=== PATIENT | female | born 1930 | race Caucasian/White ===

== ENCOUNTER 2017-04-04 07:01 | Day surgery (SDC) | payer MEDICARE, OTHER ==
[~2017-04-04] VITALS: Ht 157.5 cm; Wt 70.9 kg
--- NOTE | ~2017-04-04 | OR ---
ADMIT: 04/04/2017 RM/LOC: [facility] MR#: [id number] [address] [address] NIURKA RAMOS [address] [place] [address] Operative/Delivery Room Report SEX: F AGE: 86 : 1930 SURGERY DATE: 04/04/2017 SURGEON: Rell Porras MD PREPROCEDURE DIAGNOSIS: Acute appendicitis. POSTPROCEDURE DIAGNOSIS: Acute appendicitis. PROCEDURE: Laparoscopic appendectomy. INDICATIONS: The patient is an 86-year-old with signs, symptoms, and radiographic evidence consistent with appendicitis who presents for laparoscopic appendectomy. FINDINGS: The patient was taken to the operating room, general endotracheal anesthesia was induced. The patient's abdomen was prepped and draped in normal sterile fashion. The case was begun by making a transverse, supraumbilical 5 mm skin incision using #11 blade. A retractable 5 mm port was placed within the abdomen. The abdomen was insufflated with CO2 to an intra-abdominal pressure of 15 mmHg. A camera was placed showing no bowel or vascular injury. A suprapubic 5 mm port as well as a left lower quadrant 12 mm port was placed under direct vision. The case was begun by noting an inflamed, thickened appendix in the right lower quadrant, mobilized with Endo farnaz and atraumatic clamps. I made a window between the base of the appendix and mesoappendix using a [place] instrument. The appendix was divided, flushed with the cecum with an Endo MARTHA 45, 2.6 mm stapler. I divided the mesoappendix with 2 separate firings of an Endo-MARTHA 45, 2.6 mm stapler. The appendix was placed in an EndoCatch bag and brought out through the left lower quadrant port site. On reexamination of the operative site, there was a mild amount of bleeding from the mesenteric staple line that I controlled with electrocautery. I then irrigated the pelvis and right lower quadrant copiously until the irrigant was clear. There was no evidence of enteric leakage and/or staple line bleeding. 0.5% Marcaine was injected subdermally, subfascially for postoperative analgesia. The left lower quadrant fascial incision was closed with [id number] 0 Polysorb suture passer. The air was desufflated and the port sites removed. The skin sites closed with interrupted 4-0 Vicryl subcuticular skin stitches. Wounds were cleaned and dried. Steri-Strips and Tegaderms were applied over the top. Needle, sponge, and instrument counts were correct at the end of the case. The patient was extubated and wheeled to recovery room in good condition. Rell Porras MD/ arden JOB #: [id number] CC: Rell Porras, Attending Physician ADMIT: 04/04/2017 RM/LOC: [facility] MR#: [id number] [address] [place] [id number] NIURKA RAMOS [address] [place] [address] Operative/Delivery Room Report SEX: F AGE: 86 : 1930 Rell Porras, Family Physician
--- NOTE | ~2017-04-04 | HP ---
ADMIT: 04/04/2017 RM/LOC: [facility] MR#: [id number] [address] [address] NIURKA RAMOS [address] [place] [address] Pre-OP History and Physical SEX: F AGE: 86 : 1930 DATE OF SERVICE: 04/04/2017 HISTORY OF PRESENT ILLNESS: The patient is an 86-year-old female, who developed abdominal pain starting yesterday morning around 11:00 which is about 24 hours from now which is something she has not had prior in the past. She was not having any other associated symptoms. Has developed some nausea and anorexia. The pain persisted and became more severe in the right lower quadrant. She presented to the emergency room where she was worked up, found to have a mild leukocytosis and radiographic evidence consistent with appendicitis. PAST MEDICAL HISTORY: Includes fib-upkrncw-[id number] diabetes, hypertension, and arthritis. MEDICATIONS: Include: 1. Amlodipine. 2. Metformin. 3. Lisinopril. 4. Naprosyn. 5. Fenofibrate. 6. Tramadol. 7. Aspirin. PAST SURGICAL HISTORY: Includes bilateral total knee replacement. She has had carpal tunnel surgery in the past. She has had a laparoscopic cholecystectomy done. ALLERGIES: SHE HAS NO KNOWN DRUG ALLERGIES. FAMILY HISTORY: Otherwise unremarkable. SOCIAL HISTORY: She is a nondrinker, nonsmoker. REVIEW OF SYSTEMS: Her 11-point review of systems is negative other than the nausea and abdominal pain. PHYSICAL EXAMINATION: HEENT: Head is normocephalic and atraumatic. She had no scleral icterus. NECK: Supple. No carotid bruits. HEART: Regular. ADMIT: 04/04/2017 RM/LOC: [facility] MR#: [id number] [address] [place] [id number] NIURKA RAMOS [address] [place] [address] Pre-OP History and Physical SEX: F AGE: 86 : 1930 LUNGS: Clear. ABDOMEN: Soft, nondistended. Tender to palpation in right lower quadrant. EXTREMITIES: She had no peripheral edema. NEUROLOGICAL: No focal neurologic deficits. SKIN: No skin rash or hives. ASSESSMENT: The patient is an 86-year-old with signs, symptoms, and radiographic evidence consistent with acute appendicitis. PLAN: Plan is for laparoscopic versus open appendectomy. Risks and benefits were discussed. Rell Porras MD/ arden JOB #: [id number] CC: Rell Porras, Attending Physician Rell Porras, Family Physician
--- NOTE | ~2017-04-04 | ER ---
ADMIT: 04/04/2017 RM/LOC: [facility] MR#: [id number] [address] [facility] [address] NIURKA RAMOS [address] [place] [address] Emergency Room Report SEX: F AGE: 86 : 1930 DATE: 04/04/2017 ADDENDUM: An 86-year-old white female coming with right lower quadrant pain. She has appendicitis by CT. Also, white count is up. Exam confirms this as well. I spoke with Dr. Porras. He will take her to surgery and remove her appendix. CONDITION ON DISCHARGE: Serious, but stable at this time. Randall Zavaleta MD/ arden JOB #: [id number] CC: Rell Porras MD, Attending Physician Rell Porras MD, Family Physician
[~2017-04-04 07:01] MED LIST: ASA CHILDREN'S81 MG PO; AUGMENTIN875 MG PO; FENOFIBRATE145 MG PO; GLUCOPHAGE-DPS500 MG PO; NAPROSYN DPS500 MG PO; NORCO 5-325 TA1 EACH PO; NORVASC5 MG PO; ULTRAM DPS50 MG PO; ZESTORETIC 20/11 TAB PO
--- NOTE | 2017-04-06 11:03 | HP ---
ADMIT: 04/04/2017 RM/LOC: [facility] MR#: [id number] [address] [address] NIURKA ARMOS M [address] [place] [address] History and Physical SEX: F AGE: 86 : 1930 DATE OF SERVICE: 04/04/2017 CHIEF COMPLAINT: Abdominal pain. HISTORY OF PRESENT ILLNESS: Niurka is a very pleasant 86-year-old female, who presents [facility] with sudden onset of abdominal pain yesterday morning. She denies ever having prior episodes like this before. The pain was noted in the right lower quadrant. She denies any nausea, vomiting, diarrhea, constipation, dark or bloody stools or fevers. She is otherwise a very healthy 86-year-old female. PAST MEDICAL HISTORY: Hypertension and type 2 diabetes. PAST SURGICAL HISTORY: 1. Lap cholecystectomy. 2. Carpal tunnel surgery bilateral. 3. Bilateral total knee arthroplasty. ALLERGIES: NO KNOWN DRUG ALLERGIES. MEDICATIONS: 1. Lisinopril. 2. Hydrochlorothiazide. 3. Metformin. 4. Amlodipine. 5. Aspirin. 6. Fenofibrate. FAMILY HISTORY: Noncontributory. SOCIAL HISTORY: Patient denies any tobacco or alcohol use. REVIEW OF SYSTEMS: CONSTITUTIONAL: The patient denies any fever, chills, or night sweats. The rest of comprehensive 10-point review of systems was performed and all other systems are negative. PHYSICAL EXAMINATION: GENERAL: The patient is in no acute distress. She is alert and oriented. HEENT: Head is normocephalic and atraumatic. EOMS are intact. Conjunctivae are free of icterus, erythema, or pallor. Pinnae, free of deformities. Nose, midline. No tracheal deviation. NECK: Supple. SKIN: Negative for jaundice, clubbing, edema, pallor, or cyanosis. LUNGS: Normal respiratory effort. HEART: Distal pulses intact. Regular rate and rhythm. ABDOMEN: Soft, nondistended. Positive McBurney's point tenderness. Positive Rovsing sign. Positive psoas sign. Negative obturator sign. NEURO: Grossly intact. ADMIT: 04/04/2017 RM/LOC: [facility] MR#: [id number] [address] [address] NIURKA RAMOS [address] [place] [address] History and Physical SEX: F AGE: 86 : 1930 LABORATORY DATA: White blood cell count 12.5. DIAGNOSTIC IMAGING: CT of abdomen and pelvis revealed acute appendicitis. ASSESSMENT: Acute appendicitis. PLAN: The plan is to have the patient undergo laparoscopic appendectomy, performed by Dr. Porras. I discussed the risks, alternatives, benefits, and complications of laparoscopic cholecystectomy with the patient to which she is in agreement of this plan. I had all her questions answered and would like to proceed. She is on the schedule, so I will order her preop antibiotic and hopefully, we will be wheeling her back before noon. RENUKA Benedict / Rell Porras MD / arden JOB #: [id number] CC: Rell Porras, Attending Physician Rell Porras, Family Physician
== END 2017-04-04 16:30 | disposition home or self-care (01) ==
LOC: ER 07:01 → SSS 09:00
PROC: 0DTJ4ZZ Resection of Appendix, Percutaneous Endoscopic Approach (ICD-10-PCS; principal; 2017-04-04)
DX: K35.80 Unspecified acute appendicitis (principal); I10 Essential (primary) hypertension; E11.9 Type 2 diabetes mellitus without complications; Z79.899 Other long term (current) drug therapy; Z98.890 Other specified postprocedural states; Z79.82 Long term (current) use of aspirin; Z79.891 Long term (current) use of opiate analgesic; Z96.653 Presence of artificial knee joint, bilateral; Z90.49 Acquired absence of other specified parts of digestive tract